=== PATIENT | female | born 1945 | race Caucasian/White ===

== ENCOUNTER 2020-10-11 21:43 | Emergency (ER) | payer MEDICARE, OTHER ==
[~2020-10-11] VITALS: Ht 160 cm; Wt 61.2 kg
--- NOTE | 2020-10-11 21:59 | NUR ---
PATIENT WAS SENT FROM [facility] TODAY FOR HIGH BP WITH KIRKPATRICK, DIZZINESS, N/V. PT RX ENALAPRIL 10MG. PATIENT IS A/OX 4, RR EVEN AND UNLABORED, NO SOB NOTED. PATIENT CONNECTED TO HAIR ASSISTANT AND POX. WILL CONTINUE TO MONIOTR.
--- NOTE | 2020-10-11 22:26 | NUR ---
URINE SENT TO LAB
[2020-10-11] MEDS ORDERED: MECLIZINE HCL 25 MG TABLET ONE (22:29)
[2020-10-11] MEDS ORDERED: ONDANSETRON 4 MG TAB.RAPDIS ONE (22:30)
[2020-10-11] MEDS ORDERED: MECLIZINE HCL 12.5 MG TABLET PO ONE (22:30)
[2020-10-11] MEDS ORDERED: ONDANSETRON 4 MG TAB.RAPDIS PO ONE (22:30)
--- NOTE | 2020-10-11 22:47 | NUR ---
PATIENT TAKEN TO CT
[2020-10-11 22:48] LABS: BASOPHILS % (AUTO) 0.5 % (0.0-2.0); EOSINOPHILS % (AUTO) 1.7 % (0.0-6.0); HEMATOCRIT 43 % (33-45); HEMOGLOBIN 14.5 g/dL (11.5-14.8); LYMPHOCYTES # (AUTO) 1.6 K/uL (0.8-4.8); LYMPHOCYTES % (AUTO) 28.1 % (20.0-44.0); MEAN CORPUSCULAR HGB CONC 34 g/dl (31.0-36.0); MEAN CORPUSCULAR VOLUME 97 fL (82-100); MONOCYTES # (AUTO) 0.3 K/uL (0.1-1.30); MONOCYTES % (AUTO) 5.5 % (2.0-12.0); NEUTROPHILS # (AUTO) 3.7 K/uL (1.8-8.9); NEUTROPHILS % (AUTO) 64.2 % (43.0-81.0); PLATELET COUNT (AUTO) 212 K/uL (150-450); RED BLOOD CELL COUNT(AUTO) 4.46 MIL/uL (4.0-5.2); WHITE BLOOD COUNT (AUTO) 5.8 K/uL (4.3-11.0)
--- NOTE | 2020-10-11 22:54 | NUR ---
PATIENT RETURNED FROM CT
[2020-10-11 23:07] LABS: CALCIUM, SERUM 9.4 mg/dL (8.5-10.1); CARBON DIOXIDE 26 mmol/L (21-32); CHLORIDE 105 mmol/L (98-107); CREATININE 0.8 mg/dL (0.6-1.3); GLUCOSE 105 mg/dL (74-106); POTASSIUM 4.6 mmol/L (3.5-5.1); SODIUM SERUM 140 mmol/L (136-145); UREA NITROGEN, BLOOD 9 mg/dL (7-18)
--- NOTE | 2020-10-11 23:40 | NUR ---
PT'S SON IN LAW WILL [employer]PA[employer] PT. ETA 30 MIN
[2020-10-11 23:56] VITALS: BP 148/72
== END 2020-10-11 23:57 | disposition home or self-care (01) ==
LOC: ER 21:43
DX: R42 Dizziness and giddiness (principal); I10 Essential (primary) hypertension
CPT/HCPCS: 36415; 70450; 80048; 84484; 85025; 93005; 99285; J8597; Q0162

== ENCOUNTER 2025-02-04 10:41 | Emergency (ER) | payer MEDICARE, OTHER ==
[~2025-02-04] VITALS: Ht 157.5 cm; Wt 59.0 kg
[2025-02-04] MEDS ORDERED: IBUPROFEN 600 MG TABLET ONE (11:00)
[2025-02-04] MEDS: IBUPROFEN 600 MG TABLET PO ONE (11:15)
[2025-02-04 11:19] LABS: PLATELET COUNT (AUTO) 226 K/uL (150-450); RED BLOOD CELL COUNT(AUTO) 4.26 MIL/uL (4.0-5.2); RED CELL DISTRIBUTION WIDTH 13.6 % (11.5-15.0); WHITE BLOOD COUNT (AUTO) 5.7 K/uL (4.3-11.0)
[2025-02-04 11:27] LABS: CALCIUM, SERUM 8.7 mg/dL (8.5-10.1); CREATININE 0.8 mg/dL (0.6-1.3); SODIUM SERUM 142 mmol/L (136-145); UREA NITROGEN, BLOOD 13 mg/dL (7-18)
[2025-02-04 11:36] LABS: ASPARTATE AMINOTRANSFERASE 17 U/L (15-37); TOTAL PROTEIN, SERUM 7.6 g/dL (6.4-8.2)
[2025-02-04 11:53] LABS: NT-PRO BNP 335 pg/mL (0-125)
[2025-02-04 12:21] VITALS: BP 147/90; TEMP 98.6; O2SAT 99
== END 2025-02-04 12:22 | disposition home or self-care (01) ==
LOC: ER 10:48
DX: R07.89 Other chest pain (principal); R06.02 Shortness of breath; I10 Essential (primary) hypertension; W01.198A Fall on same level from slipping, tripping and stumbling with subsequent striking against other object, initial encounter; Y93.89 Activity, other specified; Y92.89 Other specified places as the place of occurrence of the external cause; Y99.9 Unspecified external cause status
CPT/HCPCS: 36415; 71045-TC; 80048-TC; 80076-TC; 83880; 84484-TC; 85025-TC